=== PATIENT | female | born 1970 | race Two or more races ===

== ENCOUNTER 2020-01-19 13:40 | Emergency (ER) | payer SELFPAY ==
[~2020-01-19] VITALS: Ht 154.9 cm; Wt 78.5 kg
[2020-01-19 13:53] VITALS: Ht 154.9 cm; Wt 78.5 kg
[2020-01-19 15:18] LABS: BASOPHIL % 0.3 % (0-2); PLATELET COUNT 275 x10^3mcL (130-400); RED CELL DISTRIBUTION WIDTH 13.6 % (11.5-14.5)
[2020-01-19 15:30] LABS: CALCIUM 9.4 mg/dL (8.5-10.1); CARBON DIOXIDE 29.6 mmol/L (21-32); CHLORIDE SERUM 105 mmol/L (98-107); CREATININE SERUM 0.8 mg/dL (0.6-1.0); GFR1 > 60 mL/min; GLUCOSE SERUM 86 mg/dL (74-106); POTASSIUM SERUM 4.1 mmol/L (3.5-5.1); SODIUM SERUM 142 mmol/L (136-145)
[2020-01-19 15:35] LABS: ALBUMIN 3.9 g/dL (3.4-5.0); ALKALINE PHOSPHATASE 80 U/L (46-116); ALT/SGPT 55 U/L (14-59); AST/SGOT 21 U/L (15-37); BILIRUBIN TOTAL 0.33 mg/dL (0.20-1.00); TOTAL PROTEIN, SERUM 7.6 g/dL (6.4-8.2)
[2020-01-19 16:28] LABS: T4(THYROXINE) 7.5 ug/dL (4.7-13.3)
[2020-01-19 17:14] LABS: microscopic required? YES; urine erythrocyte NEGATIVE (NEGATIVE)
[2020-01-19 17:58] LABS: AMPHETAMINE QUAL UR NONE DETECTED (See below)
[2020-01-19 19:02] VITALS: BP 90/55
== END 2020-01-19 19:02 | disposition home or self-care (01) ==
LOC: ED 13:40
PROVIDERS: Emergency Medicine
DX: R53.1 Weakness (principal); R53.83 Other fatigue
CPT/HCPCS: 36415